=== PATIENT | female | born 1935 | race Caucasian/White ===

== ENCOUNTER → 2024-05-14 | Outpatient (CLI) | payer MEDICARE, BC, SELFPAY ==
--- NOTE | 2024-05-14 14:50 | XR_ITS ---
EXAMINATION: Cervical spine, 6 views Technique: Cervical spine AP, AP odontoid, lateral, bilateral obliques, swimmer's lateral 6 views Exam date and time: May 14, 2024 1451 hours INDICATIONS: Neck pain beginning one year ago FINDINGS: No cervical fracture Advanced degenerative disc disease C5-C6, C6-C7 Grade 1 anterolisthesis C4 on C5, likely related to the degenerative disc disease caudad Diffuse moderate neural foraminal stenosis C4-C5, C5-C6, C6-C7 Intact odontoid Cervical dextroscoliosis 10 degrees IMPRESSION: No cervical fracture Advanced degenerative disc disease C5-C6, C6-C7
[2024-05-14 16:13] LABS: Basophils % (Auto) 1 % (0-2.5); Eosinophils # (Auto) 0.3 Thou/mm3 (0.0-0.5); Eosinophils % (Auto) 4 % (0-10); Hematocrit 31.1 % (36.0-46.0); Hemoglobin 10.8 g/dL (12.0-16.0); Immature Granulocytes % (Auto) 0 % (0-0); Lymphocytes # (Auto) 2.8 Thou/mm3 (1.0-4.8); Lymphocytes % (Auto) 47 % (10-50); Mean Corpuscular HGB Conc 34.7 g/dl (31.0-37.0); Mean Corpuscular Hemoglobin 33.5 pg (25.0-35.0); Mean Corpuscular Volume 97 fL (80-100); Monocytes # (Auto) 0.5 Thou/mm3 (0.0-0.8); Monocytes % (Auto) 9 % (0-12); Neutrophils # (Auto) 2.4 Thou/mm3 (1.8-7.7); Neutrophils % (Auto) 39 % (37-80); Nucleated Red Blood Cell % 0 /100 WBC (0); Platelet Count 186 Thou/mm3 (140-440); RDW Standard Deviation 42.8 fL (36.4-46.3); Red Blood Count 3.22 Miln/mm3 (4.00-5.20)
[2024-05-14 16:15] LABS: Collection Type, Urine Clean Catch
[2024-05-14 16:23] LABS: Iron 82 mcg/dL (50-170)
[2024-05-14 16:33] LABS: Vitamin B12 1084 pg/mL (211-911)
[2024-05-14 16:35] LABS: Alanine Aminotransferase 24 U/L (10-49); Albumin, Serum 4.4 gm/dL (3.4-4.8); Albumin/Globulin Ratio 2.1 (1.2-2.2); Alkaline Phosphatase 89 U/L (46-116); Anion Gap 7 (7-16); Aspartate Amino Transferase 29 U/L (0-34); BUN/Creatinine Ratio 19 Ratio (12-20); Bilirubin,Total 0.5 mg/dL (0.3-1.2); Blood Urea Nitrogen 23 mg/dL (9-23); Calcium 9.8 mg/dL (8.3-10.6); Calcium (Corrected) 9.8 mg/dL (8.5-10.1); Carbon Dioxide 25.2 mMol/L (20.0-31.0); Cardiac Risk Estimate 4.4 RATIO (3.7-5.6); Chloride 104 mMol/L (98-107); Cholesterol 233 mg/dL (132-200); Creatinine (Component) 1.2 mg/dL (0.6-1.3); Globulin 2.1 gm/dL (2.3-3.5); Glucose 148 mg/dL (74-106); HDL Cholesterol 53 mg/dL (40-60); LDL Cholesterol,Calculated 124 mg/dL (0-130); Osmolality,Calculated 278 (275-295); Potassium 4.2 mMol/L (3.4-5.1); Sodium 136 mMol/L (136-145); Thyroid Stimulating Hormone 3.07 uIU/mL (0.55-4.78); Total Protein 6.5 gm/dL (5.7-8.2); Triglycerides 280 mg/dL (30-150); eGFR 44 See Note
[2024-05-14 16:44] LABS: Glucose Estimated Average 123 mg/dL (80-131); Hemoglobin A1C 5.9 % Hgb (4.8-6.0)
[2024-05-14 18:01] LABS: Bilirubin,Urine Negative (Negative); Blood,Urine Negative (Negative); Clarity,Urine Clear (Clear/Hazy); Color,Urine Yellow (Lt Yel-Yel); Culture Indicated,Urine Not Indicated; Glucose, Urine Negative (Negative); Ketones,Urine Negative (Negative); Leukocyte Esterase,Urine Negative (Negative); Nitrite,Urine Negative (Negative); Protein,Urine Negative (Neg - Trace); RBC,Urine 3 /hpf (0-3); Specific Gravity,Urine 1.015 (1.001-1.035); Squamous Epithelial Cell,Urine 1 /hpf (0-5); Urobilinogen,Urine Negative mg/dL (0.0-1.0); WBC,Urine 2 /hpf (0-5)
[2024-05-14 18:11] LABS: Creatinine MALB Rnd Ur 73 mg/dL (30-125); Microalbumin Creat Ratio 5 mg/gCrea (<30); Microalbumin, Random Urine 4 mg/L (0-300)
== END | disposition home or self-care (01) ==
LOC: CDIM 14:38 → COPL 15:27
PROVIDERS: PCP Nurse Practitioner Family; Referring Provider Nurse Practitioner Family; Visit Provider Radiology Diagnostic Radiology
DX: M50.323 Other cervical disc degeneration at C6-C7 level (principal); Z00.00 Encounter for general adult medical examination without abnormal findings; E11.22 Type 2 diabetes mellitus with diabetic chronic kidney disease; N18.31 Chronic kidney disease, stage 3a; D63.8 Anemia in other chronic diseases classified elsewhere; E11.42 Type 2 diabetes mellitus with diabetic polyneuropathy
CPT/HCPCS: 36415; 72050; 80053; 80061; 81001; 82043; 82570; 82607; 83036; 83540; 84443; 85025

== ENCOUNTER → 2024-07-04 | Outpatient (CLI) | payer MEDICARE, BC, SELFPAY ==
--- NOTE | 2024-07-04 13:30 | XR_ITS ---
Examination: CT chest, without intravenous contrast. Sagittal and coronal 2-D reconstructions. Exam date and time: July 04, 2024 1319 hours INDICATIONS: CT chest November 30, 2023 10 mm spiculated pulmonary nodule right upper lobe, 4 mm pulmonary nodule right upper lobe 4 mm pulmonary nodule right upper lobe 3 mm pulmonary nodule right middle lobe CTDI:vol (mGy) 8.23 DLP: (mGycm) 274 Technique: Multiple 3.0 mm axial sections of the chest to been obtained. Bone and lung density settings are obtained. Sagittal and coronal 2-D reconstructions have been obtained. Low dose protocols were performed. One or more of the following dose reduction techniques were used; automated exposure control, adjustment of the mA and/or KV according to patient size, use of iterative reconstruction technique. Findings: No thoracic aortic aneurysmal dilatation Pulmonary artery segments are not enlarged No paratracheal tracheobronchial or bronchopulmonary adenopathy Stable 10 mm spiculated pulmonary nodule right upper lobe Stable 4 mm pulmonary nodule 3 mm pulmonary nodule right upper lobe New 3 mm pulmonary nodule right lower lobe 7 No lobar pneumonia or pulmonary edema No focal liver or splenic lesion No pancreatic or adrenal mass Moderate renal parenchymal scar formation IMPRESSION: Stable 10 mm spiculated pulmonary nodule right upper lobe New 3 mm pulmonary nodule right lower lobe, with this study as baseline recommend 1 additional continued 6 month follow-up CT chest without contrast
== END | disposition home or self-care (01) ==
PROVIDERS: Referring Provider Nurse Practitioner Family; Visit Provider Nurse Practitioner Family
DX: R91.8 Other nonspecific abnormal finding of lung field (principal)
CPT/HCPCS: 71250

== ENCOUNTER 2024-07-11 13:52 | Emergency (ER) | payer MEDICARE, BC, SELFPAY ==
--- NOTE | 2024-07-11 13:58 | EKG_ITS ---
[facility] Test Date: 2024-07-11 Pat Name: TONE WICK Department: Room: - Gender: Female Manager Continuous Improvement: : 1935 Requested By: ED Temporary Provider Order Number: [id number] Reading MD: ED Temporary Provider Measurements Intervals [place] Rate: 58 P: 79 WY: 188 QRS: -1 QRSD: 84 T: 19 QT: 397 QTc: 392 Interpretive Statements SINUS BRADYCARDIA No previous ECG available for comparison /[id number]/[email or web address]/[id number]
[2024-07-11 14:07] VITALS: BP 95/61; PULSE 58; RESP 16; TEMP 36.3; O2SAT 97; BMI 23.3
--- NOTE | 2024-07-11 14:13 | XR_ITS ---
Examination: PA lateral chest 2 views TECHNIQUE: Upright PA lateral chest 2 views Exam date and time: July 11, 2024 1428 hours INDICATIONS: Chest pain dizziness today. FINDINGS: Minimal rounding left ventricle Moderate vascular congestion Accentuation basilar bronchovascular markings No lobar pneumonia IMPRESSION: Basilar bronchitis pattern
--- NOTE | 2024-07-11 14:13 | PD.EDRME ---
Rapid Medical Screening Exam RME Arrival date/time: 07/11/24 13:52 88-year-old female presents to the emergency department complaints of chest pressure ongoing since yesterday Chief Complaint: Chest Pain Vital signs: Vital Signs Temperature 97.4 F 07/11/24 14:07 Pulse Rate 58 L 07/11/24 14:07 Respiratory Rate 16 07/11/24 14:07 Blood Pressure 95/61 07/11/24 14:07 Pulse Oximetry (%) 97 07/11/24 14:07 Oxygen Delivery Method Room Air 07/11/24 14:07
[2024-07-11 15:35] LABS: Basophils % (Auto) 0 % (0-2.5); Eosinophils # (Auto) 0.2 Thou/mm3 (0.0-0.5); Eosinophils % (Auto) 3 % (0-10); Hematocrit 30.7 % (36.0-46.0); Hemoglobin 10.8 g/dL (12.0-16.0); Immature Granulocytes % (Auto) 0 % (0-0); Immature Granulocytes Auto 0.02 Thou/mm3 (0.00-0.00); Lymphocytes # (Auto) 3.1 Thou/mm3 (1.0-4.8); Lymphocytes % (Auto) 42 % (10-50); Mean Corpuscular HGB Conc 35.2 g/dl (31.0-37.0); Mean Corpuscular Volume 97 fL (80-100); Monocytes # (Auto) 0.6 Thou/mm3 (0.0-0.8); Monocytes % (Auto) 8 % (0-12); Neutrophils # (Auto) 3.4 Thou/mm3 (1.8-7.7); Neutrophils % (Auto) 46 % (37-80); Nucleated Red Blood Cell % 0 /100 WBC (0); Platelet Count 194 Thou/mm3 (140-440); RDW Standard Deviation 42.6 fL (36.4-46.3); Red Blood Count 3.18 Miln/mm3 (4.00-5.20); White Blood Count 7.4 Thou/mm3 (3.6-11.0)
[2024-07-11 15:49] LABS: INR 1.1 (0.9-1.3); Partial Thromboplastin Time 23.5 Seconds (22.0-36.0); Prothrombin Time 11.7 Seconds (9.0-12.2)
[2024-07-11 16:08] LABS: Collection Type, Urine Clean Catch
[2024-07-11 16:15] LABS: Alanine Aminotransferase 31 U/L (10-49); Albumin, Serum 4.4 gm/dL (3.4-4.8); Alkaline Phosphatase 90 U/L (46-116); Anion Gap 7 (7-16); Aspartate Amino Transferase 27 U/L (0-34); BUN/Creatinine Ratio 15 Ratio (12-20); Bilirubin,Total 0.5 mg/dL (0.3-1.2); Blood Urea Nitrogen 17 mg/dL (9-23); Calcium 9.2 mg/dL (8.3-10.6); Calcium (Corrected) 9.2 mg/dL (8.5-10.1); Carbon Dioxide 24.9 mMol/L (20.0-31.0); Chloride 100 mMol/L (98-107); Creatinine (Component) 1.1 mg/dL (0.6-1.3); Globulin 2.2 gm/dL (2.3-3.5); Glucose 107 mg/dL (74-106); Lipase 55 U/L (12-53); Magnesium 2.2 mg/dL (1.6-2.6); Osmolality,Calculated 266 (275-295); Potassium 4.8 mMol/L (3.4-5.1); Sodium 132 mMol/L (136-145); Total Protein 6.6 gm/dL (5.7-8.2); Troponin I < 0.002 ng/mL (0.0-0.045); eGFR 49 See Note
[2024-07-11 16:27] LABS: Bacteria,Urine Rare; Bilirubin,Urine Negative (Negative); Blood,Urine Negative (Negative); Clarity,Urine Clear (Clear/Hazy); Color,Urine Drk-Yellow (Lt Yel-Yel); Glucose, Urine Negative (Negative); Hyaline Casts,Urine 1 /hpf (0-1); Ketones,Urine Trace (Negative); Leukocyte Esterase,Urine Positive (Negative); Nitrite,Urine Negative (Negative); Protein,Urine 1+ (Neg - Trace); RBC,Urine 8 /hpf (0-3); Specific Gravity,Urine 1.029 (1.001-1.035); Squamous Epithelial Cell,Urine 2 /hpf (0-5); Urobilinogen,Urine Negative mg/dL (0.0-1.0); WBC,Urine 4 /hpf (0-5)
[2024-07-11 16:31] LABS: B-Type Natriuretic Peptide 57 pg/mL (0-100)
[2024-07-11 17:34] VITALS: BP 172/89; PULSE 57; RESP 16; TEMP 36.3; O2SAT 97
--- NOTE | 2024-07-11 17:36 | EDNOTE_ITS ---
<Statement entered by Lisa Naranjo MD - 07/12/24 07:40> As co-signing physician, I was present and available for consult prn. I concur with the plan and care as documented by the midlevel provider. ED Dizzyness RME/HPI General Chief Complaint: Chest Pain Stated Complaint: CX PAIN X LAST NITE W/ LOW BP, DIZZY; BROWN SENT Time Seen by Provider: 07/11/24 17:24 Arrival date/time: 07/11/24 13:52 RME / HPI RME / HPI Narrative: 88-year-old female patient was brought in by family for evaluation chest pain. Onset of symptoms since last night, has left-sided chest pain, described as dull ache, severity mild. Patient's been having issues with cough been ongoing for several weeks, already finished antibiotic given by PCP. In the clinic patient was noted to have low blood pressure. Denies any fever denies any dizziness denies any other complaints. Related Data Home Medications ?Medication ?Instructions ?Recorded ?Confirmed brimonidine 0.2 % eye drops 1 drp ophthalmic (eye) QDAY 12/26/23 12/26/23 dorzolamide 22.3 mg-timolol 6.8 1 drp ophthalmic (eye) QDAY 12/26/23 12/26/23 mg/mL eye drops gabapentin 300 mg capsule 300 mg PO QDAY 12/26/23 12/26/23 latanoprost 0.005 % eye drops 1 drp ophthalmic (eye) QDAY 12/26/23 12/26/23 levothyroxine 75 mcg tablet 75 mcg PO QDAY 12/26/23 12/26/23 Allergies Allergy/AdvReac Type Severity Reaction Status Date / Time No Known Allergies Allergy Verified 07/11/24 13:53 Review of Systems Review of Systems Narrative Review of Systems: Review of system reviewed and within normal limits except mentioned in HPI ED Exam Narrative Physical exam: VITAL SIGNS: Reviewed. GENERAL APPEARANCE: Alert and interactive, follows commands, no acute distress, HEAD AND FACE: Non-traumatic. ENT: PERRL, pink conjunctivitis, eyelid no trauma, Mucous membrane moist. NECK: Supple, nontender, no nuchal rigidity. CHEST: No tenderness, no crepitus, no paradoxical movement, no retractions. LUNGS: Clear, well ventilated, symmetric, no rales, no wheezing, no ronchi, no stridor, good breath sounds bilaterally. HEART: Regular rate, regular rhythm, no murmur, no gallops. ABDOMEN: Soft, positive bowel sounds, nondistended, no guarding, nontender, no rebound, no masses, RECTAL: Deferred. GENITAL: Deferred. NEUROLOGICAL: Gross motor function intact sensory function intact, Appropriate for age. MUSCULOSKELETAL: low back nontender, full range of motion. EXTREMITIES: Nontender, full range of motion. SKIN: Color pink, dry, no rash, no lacerations, no abrasions, no contusions. LYMPHATICS: Deferred. Course Quality Measures none Orders Category Date Time Status EKG (ED ONLY) *Do not use* NOW Care 07/11/24 13:58 Completed EKG (ED Only) Stat Exams 07/11/24 13:58 Draft XR chest 2V Stat Exams 07/11/24 14:13 Completed B-Type Natriuretic Peptide Stat Lab 07/11/24 14:54 Completed CBC Stat Lab 07/11/24 14:54 Completed Comprehensive Metabolic Panel Stat Lab 07/11/24 14:54 Completed Lipase Stat Lab 07/11/24 14:54 Completed Magnesium Stat Lab 07/11/24 14:54 Completed Partial Thromboplastin Time Stat Lab 07/11/24 14:54 Completed Prothrombin Time with INR Stat Lab 07/11/24 14:54 Completed Troponin I Stat Lab 07/11/24 14:54 Completed Urinalysis Stat Lab 07/11/24 15:50 Completed Vital Signs Vital signs: Vital Signs Temperature 97.4 F 07/11/24 14:07 Pulse Rate 58 L 07/11/24 14:07 Respiratory Rate 16 07/11/24 14:07 Blood Pressure 95/61 07/11/24 14:07 Pulse Oximetry (%) 97 07/11/24 14:07 Oxygen Delivery Method Room Air 07/11/24 14:07 Dizziness MDM Narrative MDM Narrative:: 88-year-old female patient was brought in by family for evaluation chest pain. Onset of symptoms since last night, has left-sided chest pain, described as dull ache, severity mild. Patient's been having issues with cough been ongoing for several weeks, already finished antibiotic given by PCP. In the clinic patient was noted to have low blood pressure. Denies any fever denies any dizziness denies any other complaints. Patient's workup all came back unremarkable. Chest x-ray showed bronchitis pattern no pneumonia noted, troponin is normal. EKG shows sinus bradycardia, ventricular rate of 58 bpm, no ST segment elevation or depression noted. Results discussed with the patient, blood pressure was noted to be 172/89, heart rate of 57. Satting is 97% on room air. Patient stable for discharge home patient is not having any chest pain prior to discharge repeat troponin is not needed patient's chest pain started last night. Patient data External records reviewed:: None Clinical information provided by:: patient Social determinants that could affect healthcare access:: none Patient has the following chronic illnesses:: Hypertension How is presenting disease/condition affected by chronic disease/condition?: e xacerbated by Evaluation data The following diagnostics were reviewed and interpreted by me:: lab results, radiology exam(s) and EKG tracing(s) Lab and/or radiology exams considered but not ordered:: None Interpretation Summary: Patient's workup all came back unremarkable. Chest x-ray showed bronchitis pattern no pneumonia noted, troponin is normal. EKG shows sinus bradycardia, ventricular rate of 58 bpm, no ST segment elevation or depression noted. Medications / Prescriptions Medications or Prescriptions considered but not ordered:: None Medication administrations:: None Consultations Consultation(s) initiated? (list below): No Diagnosis Dizziness Differential Diagnosis: orthostatic hypotension and other (Chest pain, bronchitis) Most likely diagnosis given after review of the tests above:: Chest pain Admission Indicated Admission indicated?: not indicated Explain why admission is indicated or not indicated:: Stable for discharge Admission Request Was there a request for admission?: No Disposition Plan Disposition Plan: Discharge Discharge Attestation Discharge Attestation: The patient and all family members were given an opportunity to ask questions and understood the discharge instructions. Discharge instructions specifically effects, indications for sooner follow up or return to the emergency department, and the expected course of current diagnosis. Patient condition: Stable Discharge Plan Plan Patient Disposition: HOME (Self Care) Disposition Comment: stable Prescriptions/Referrals Prescriptions/Med Rec: No Action latanoprost 0.005 % drops 1 drp OPHTHALMIC (EYE) QDAY levothyroxine 75 mcg tablet 75 mcg PO QDAY brimonidine 0.2 % drops 1 drp OPHTHALMIC (EYE) QDAY gabapentin 300 mg capsule 300 mg PO QDAY dorzolamide-timolol 22.3-6.8 mg/mL drops 1 drp OPHTHALMIC (EYE) QDAY Referrals: Hoda Jensen [facility] [Primary Care Provider] - In 1 week Problem List Clinical Impression: Chest pain Patient/Caregiver Discharge Instructions Discharge Activity: activity as tolerated Education Materials: Understanding the Pain Response Additional Instructions: Thank you for the opportunity for serving you today. You are stable for discharged . You are advised to: Follow-up with your PCP in 1 to 2 days Return to ED for worsening of symptoms Print Language: French Stand Alone Forms: [facility] Award Info., Patient Portal Info Letter PA/ACCOUNTS RECEIVABLE BOOKKEEPER Supervising Physician PA/JENI Supervising Physician: MD Staci
== END 2024-07-11 17:42 | disposition home or self-care (01) ==
PROVIDERS: Nurse Practitioner Primary Care; Emergency Provider Emergency Medicine; PCP Nurse Practitioner Family
DX: R07.9 Chest pain, unspecified (principal); R00.1 Bradycardia, unspecified; I10 Essential (primary) hypertension
CPT/HCPCS: 36415; 71046; 80053; 81001; 83690; 83735; 83880; 84484; 85025; 85610; 85730; 93005; 99283

== ENCOUNTER → 2024-09-12 | Outpatient (CLI) | payer MEDICARE, BC, SELFPAY ==
--- NOTE | 2024-09-12 14:10 | XR_ITS ---
Examination: Cervical spine 3 views Technique one AP lateral coned AP odontoid cervical spine 3 views Exam date and time: February 12, 2025 1415 hours Comparison May 14, 2024 INDICATIONS: Neck pain years FINDINGS: Grade 1 anterolisthesis C3 on C4, C4 on C5 No cervical fracture Intact odontoid Advanced degenerative disc disease C5-C6, C6-C7 Moderate cervical spondylosis at the C5 and C6 levels IMPRESSION: Advanced degenerative disc disease C5-C6, C6-C7
== END | disposition home or self-care (01) ==
LOC: CDIM 14:03
PROVIDERS: PCP Family Medicine; Referring Provider Nurse Practitioner Family; Visit Provider Nurse Practitioner Family
DX: M50.322 Other cervical disc degeneration at C5-C6 level (principal)
CPT/HCPCS: 72040

== ENCOUNTER → 2025-01-10 | Outpatient (CLI) | payer MEDICARE, BC, SELFPAY ==
--- NOTE | 2025-01-10 14:00 | XR_ITS ---
Examination: CT chest, without intravenous contrast. Sagittal and coronal 2-D reconstructions. Exam date and time: January 10, 2025 1434 hours Comparison July 04, 2024 INDICATIONS: 10 mm nodule right upper lobe, 4 mm pulmonary nodules 3 mm pulmonary nodule right upper lobe, 3 mm pulmonary nodule right lower lobe on CT chest July 04, 2024 CTDI:vol (mGy) 8.77 DLP: (mGycm) 297 Technique: Multiple 3.0 mm axial sections of the chest to been obtained. Bone and lung density settings are obtained. Sagittal and coronal 2-D reconstructions have been obtained. Low dose protocols were performed. One or more of the following dose reduction techniques were used; automated exposure control, adjustment of the mA and/or KV according to patient size, use of iterative reconstruction technique. Findings: No thoracic aortic aneurysm dilatation Pulmonary artery segments are not enlarged Calcification left anterior descending coronary artery Stable bilateral pulmonary nodules including 10 mm pulmonary nodule right upper lobe No new pulmonary nodules No pneumonia or pulmonary edema No visualized liver or splenic lesion No pancreatic mass Moderate renal parenchymal scar formation IMPRESSION: Stable bilateral pulmonary nodules, no new pulmonary nodules
== END | disposition home or self-care (01) ==
LOC: CCTX 13:54
PROVIDERS: PCP Family Medicine; Referring Provider Specialist; Visit Provider Specialist
DX: R91.8 Other nonspecific abnormal finding of lung field (principal)
CPT/HCPCS: 71250

== ENCOUNTER → 2025-02-28 | Outpatient (CLI) | payer MEDICARE, BC, SELFPAY ==
--- NOTE | 2025-02-28 09:03 | XR_ITS ---
Examination: CT abdomen and pelvis without contrast. Coronal 3-D reconstructions. Sagittal 2-D reconstructions. Date and time of exam:February 28, 2025 0936 hours COMPARISON: November 29, 2023 INDICATIONS: Left upper abdominal pain beginning 2 months ago CTDI: vol (mGy): 6.43 DLP: (mGycm): 317 Technique: Axial images of the abdomen have been obtained, 3 mm slice thickness Intravenous contrast material has not been administered. Low dose protocols were performed. One or more of the following dose reduction techniques were used; automated exposure control, adjustment of the mA and/or KV according to patient size, use of iterative reconstruction technique. Findings: No focal liver or splenic lesion Gallbladder is not diagnostically visualized No pancreatic mass Bilateral prominent renal scarring, no renal or ureteral calculi, no hydronephrosis Aorta normal size No pericecal inflammatory change Colonic diverticulosis, no diverticulitis. 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
[2025-02-28 10:55] LABS: Basophils # (Auto) 0.0 Thou/mm3 (0.0-0.2); Basophils % (Auto) 1 % (0-2.5); Eosinophils # (Auto) 0.1 Thou/mm3 (0.0-0.5); Eosinophils % (Auto) 2 % (0-10); Hematocrit 32.4 % (36.0-46.0); Hemoglobin 11.1 g/dL (12.0-16.0); Immature Granulocytes Auto 0.02 Thou/mm3 (0.00-0.00); Lymphocytes # (Auto) 2.7 Thou/mm3 (1.0-4.8); Lymphocytes % (Auto) 41 % (10-50); Mean Corpuscular HGB Conc 34.3 g/dl (31.0-37.0); Mean Corpuscular Hemoglobin 33.8 pg (25.0-35.0); Mean Corpuscular Volume 99 fL (80-100); Monocytes # (Auto) 0.6 Thou/mm3 (0.0-0.8); Monocytes % (Auto) 9 % (0-12); Neutrophils # (Auto) 3.1 Thou/mm3 (1.8-7.7); Neutrophils % (Auto) 47 % (37-80); Nucleated Red Blood Cell # 0.00 Thou/mm3 (0.00-0.00); Nucleated Red Blood Cell % 0 /100 WBC (0); Platelet Count 196 Thou/mm3 (140-440); RDW Standard Deviation 43.1 fL (36.4-46.3); Red Blood Count 3.28 Miln/mm3 (4.00-5.20); White Blood Count 6.6 Thou/mm3 (3.6-11.0)
[2025-02-28 11:09] LABS: Alanine Aminotransferase 25 U/L (10-49); Albumin, Serum 4.5 gm/dL (3.4-4.8); Albumin/Globulin Ratio 2.0 (1.2-2.2); Alkaline Phosphatase 70 U/L (46-116); Anion Gap 9 (7-16); Aspartate Amino Transferase 29 U/L (0-34); BUN/Creatinine Ratio 14 Ratio (12-20); Bilirubin,Total 0.9 mg/dL (0.3-1.2); Blood Urea Nitrogen 14 mg/dL (9-23); Calcium 10.3 mg/dL (8.3-10.6); Calcium (Corrected) 10.3 mg/dL (8.5-10.1); Carbon Dioxide 24.8 mMol/L (20.0-31.0); Chloride 103 mMol/L (98-107); Creatinine (Component) 1.0 mg/dL (0.6-1.3); Globulin 2.2 gm/dL (2.3-3.5); Glucose 104 mg/dL (74-106); Osmolality,Calculated 274 (275-295); Potassium 4.8 mMol/L (3.4-5.1); Sodium 137 mMol/L (136-145); Total Protein 6.7 gm/dL (5.7-8.2); Troponin I < 0.002 ng/mL (0.0-0.045); eGFR 55 See Note
[2025-02-28 14:40] LABS: Collection Type, Urine Clean Catch
[2025-02-28 15:22] LABS: Bilirubin,Urine Negative (Negative); Blood,Urine Negative (Negative); Clarity,Urine Turbid (Clear/Hazy); Color,Urine Yellow (Lt Yel-Yel); Glucose, Urine Negative (Negative); Hyaline Casts,Urine < 1 /hpf (0-1); Ketones,Urine Negative (Negative); Leukocyte Esterase,Urine Negative (Negative); Nitrite,Urine Negative (Negative); PH,Urine 6.5 (5.0-7.0); Protein,Urine Negative (Neg - Trace); RBC,Urine 3 /hpf (0-3); Specific Gravity,Urine 1.014 (1.001-1.035); Squamous Epithelial Cell,Urine < 1 /hpf (0-5); Urobilinogen,Urine Negative mg/dL (0.0-1.0); WBC,Urine 4 /hpf (0-5)
== END | disposition home or self-care (01) ==
LOC: CCTX 08:40 → COPL 09:50
PROVIDERS: PCP Nurse Practitioner Family; Referring Provider Nurse Practitioner Family; Visit Provider Radiology Diagnostic Radiology
DX: N28.89 Other specified disorders of kidney and ureter (principal); R10.812 Left upper quadrant abdominal tenderness
CPT/HCPCS: 36415; 74176; 80053; 81001; 84484; 85025; 87086

== ENCOUNTER → 2025-03-06 | Outpatient (CLI) | payer MEDICARE, BC, SELFPAY ==
--- NOTE | 2025-03-06 08:45 | XR_ITS ---
Examination: Sinus series 4 views TECHNIQUE: Blake Perkins lateral submentovertex sinus series 4 views Date and time: March 06, 2025, 0856 hours INDICATIONS: Sinus pressure and pain 2 weeks. FINDINGS: Opacity in the frontal ethmoid air cells. Mucosal thickening up to 20 mm in the maxillary antra No retention cysts or fluid levels IMPRESSION: Chronic sinusitis
== END | disposition home or self-care (01) ==
PROVIDERS: PCP Family Medicine; Referring Provider Family Medicine; Visit Provider Family Medicine
DX: J32.9 Chronic sinusitis, unspecified (principal)
CPT/HCPCS: 70220

== ENCOUNTER → 2025-05-08 | Outpatient (CLI) | payer MEDICARE, BC, SELFPAY ==
--- NOTE | 2025-05-08 09:45 | XR_ITS ---
Examination: Screening digital mammography, bilateral Computer aided detection 3-D breast Tomosynthesis, bilateral Date and time of exam: May 08, 2025, 0928 hours, compared to mammograms dating to July 06, 2022 Indication: Screening Technique: Nonmagnified MLO, CC views of the breasts to been obtained, reconstructed from 3-D Tomosynthesis images. R2 computer aided detection program utilized for evaluation of suspicious masses and/or abnormal calcifications. 3-D Tomosynthesis images obtained. Findings: The breasts are heterogeneously dense, which may obscure small masses Benign calcifications including benign vascular calcifications 13 mm focal asymmetry inner right breast cc view 5 cm from the nipple Impression: BI-RADS Category 0: Incomplete: Need additional imaging evaluation 13 mm focal asymmetry inner right breast cc view 5 cm from the nipple Recommend follow-up spot tomographic views inner upper quadrant right breast right breast sonography to complete the work-up
== END | disposition home or self-care (01) ==
LOC: CDIM 09:17
PROVIDERS: Referring Provider Nurse Practitioner Family; Visit Provider Nurse Practitioner Family
DX: Z12.31 Encounter for screening mammogram for malignant neoplasm of breast (principal); R92.8 Other abnormal and inconclusive findings on diagnostic imaging of breast; N64.89 Other specified disorders of breast
CPT/HCPCS: 77063; 77067

== ENCOUNTER → 2025-05-09 | Outpatient (CLI) | payer MEDICARE, BC, SELFPAY ==
[2025-05-09 10:22] LABS: Glucose Estimated Average 128 mg/dL (80-131); Hemoglobin A1C 6.1 % Hgb (4.8-6.0)
[2025-05-09 11:29] LABS: Creatinine MALB Rnd Ur 42 mg/dL (30-125); Microalbumin Creat Ratio 21 mg/gCrea (<30); Microalbumin, Random Urine 9 mg/L (0-300)
[2025-05-09 11:39] LABS: Cardiac Risk Estimate 4.2 RATIO (3.7-5.6); Cholesterol 228 mg/dL (132-200); HDL Cholesterol 54 mg/dL (40-60); LDL Cholesterol,Calculated 145 mg/dL (0-130); Thyroid Stimulating Hormone 4.52 uIU/mL (0.55-4.78); Triglycerides 146 mg/dL (30-150)
== END | disposition home or self-care (01) ==
LOC: COPL 08:40
PROVIDERS: PCP Nurse Practitioner Family; Referring Provider Nurse Practitioner Family; Visit Provider Nurse Practitioner Family
DX: E11.42 Type 2 diabetes mellitus with diabetic polyneuropathy (principal); E03.9 Hypothyroidism, unspecified; E78.2 Mixed hyperlipidemia
CPT/HCPCS: 36415; 80061; 82043; 82570; 83036; 84443

== ENCOUNTER → 2025-06-06 | Outpatient (CLI) | payer MEDICARE, BC, SELFPAY ==
--- NOTE | 2025-06-06 09:30 | XR_ITS ---
Examination: Breast ultrasound, unilateral, right complete Date and time of exam: June 06, 2025, 0925 hours INDICATIONS: Mammogram May 08, 2000 2513 mm focal asymmetry inner right breast cc view, 5 cm from the nipple Technique: Real-time gamez scale ultrasonographic imaging performed right breast including all 4 quadrants as well as nipple retroareolar and axillary region. Findings: 3:00 probable glandular tissue 15 x 12 x 19 mm IMPRESSION: BI-RADS Category 3: Probably benign findings Recommend 1 additional 6-month right breast sonogram follow-up to document probably benign glandular tissue in the 3 o'clock position right breast
--- NOTE | 2025-06-06 10:00 | XR_ITS ---
Examination: Diagnostic digital mammography, unilateral, right Computer aided detection 3-D breast Tomosynthesis, unilateral Date and time of exam: 06/06/2025, 9:46 a.m. Comparisons: May 2020 through April 2025 Indications: Further evaluation of asymmetry inner right breast seen on prior screening exam. Technique: Nonmagnified MLO, CC views of the right breast have been obtained, reconstructed from 3-D Tomosynthesis images. R2 computer aided detection program utilized for evaluation of suspicious masses and/or abnormal calcifications. 3-D Tomosynthesis images obtained. Technologist: Findings: The breasts are heterogeneously dense, which may obscure small masses. No evidence of abnormal masses or suspicious calcifications. Previously described abnormality does not persist on spot compression views and represents superimposition of normal fibroglandular tissue. Impression: BI-RADS category 1: Negative findings (within normal) Recommend 1 year follow-up mammogram
== END | disposition home or self-care (01) ==
PROVIDERS: PCP Nurse Practitioner Family; Referring Provider Nurse Practitioner Family; Visit Provider Nurse Practitioner Family
DX: R92.311 Mammographic fatty tissue density, right breast (principal)
CPT/HCPCS: 76641; 77061; 77065; G0279

== ENCOUNTER → 2025-06-14 | Outpatient (CLI) | payer MEDICARE, BC, SELFPAY ==
--- NOTE | 2025-06-14 13:00 | XR_ITS ---
Examination: MRI cervical spine without intravenous contrast Date and time of exam: June 14, 2025, 1428 hours INDICATIONS: Neck pain dizziness months TECHNIQUE: Multiple axial sagittal cervical spine images obtained FINDINGS: Minimal anterolisthesis C3 on C4 Advanced disc narrowing C5-C6, C6-C7 No cervical fracture Intact odontoid Diffuse cervical disc desiccation No localized enlargement cervical cord C2-C3 no disc protrusion C3-C4 uncinate process hypertrophy, moderate bilateral neuroforaminal stenosis C4-C5 uncinate process hypertrophy and mild bilateral neuroforaminal stenosis C5-C6 3 mm central subarticular osteophyte disc complex, moderate bilateral neuroforaminal stenosis C6-C7 uncinate process hypertrophy, moderate right neural foraminal stenosis C7-T1 no disc protrusion Impression: Advanced degenerative disc disease C5-C6, C6-C7 C3-C4 moderate bilateral neuroforaminal stenosis C5-C6 3 mm central subarticular osteophyte disc complex, moderate bilateral neuroforaminal stenosis C6-C7 moderate right neuroforaminal stenosis
--- NOTE | 2025-06-14 13:30 | XR_ITS ---
Examination: MRI brain without intravenous contrast. Date and time of exam: June 14, 2025, 1411 hours INDICATION: Headaches decreased vision dizziness loss of balance numbness in the feet 6 months COMPARISON: November 19, 2022 Technique: Multiple axial and sagittal images of the brain obtained. Siemens high-resolution 1.5 Silvina short bore scanners utilized. Sagittal sections, T1-weighted, TR 500, TE 14, are performed. Axial sections proton-density and T2-weighted have been obtained. Inversion recovery axial images, TR 9, 260, TE 111, TI 2500. Diffusion weighted images, axial sections, TR 4800, TE 128, B value 1000 Axial sections, ADC map, TR 4800, TE 128 Findings: Enlargement of the sella turcica is not present. The optic chiasm and infundibular are not remarkable. Prepontine and interpeduncular cisterns are not enlarged. There is no localized enlargement of the medulla or tequila. Fourth ventricle and cerebellar tonsils appear normal in position. No subacute area of hemorrhage density is seen. Mass in the cerebellopontine angle region is not evident. Globes symmetrical. Orbital musculature including medial lateral rectus muscles do not exhibit abnormality. Diffusion-weighted images demonstrate no focus of restricted diffusion. Increased white matter signal prominent Mass effect upon the ventricular system is not identified. Impression: Negative for acute hemorrhage mass effect or midline shift No acute infarct Prominent chronic microvascular white matter change
== END | disposition home or self-care (01) ==
PROVIDERS: PCP Family Medicine; Referring Provider Nurse Practitioner Family; Visit Provider Nurse Practitioner Family
DX: R90.82 White matter disease, unspecified (principal); M50.322 Other cervical disc degeneration at C5-C6 level; M48.02 Spinal stenosis, cervical region; M25.78 Osteophyte, vertebrae
CPT/HCPCS: 70551; 72141